=== PATIENT | male | born 1975 | race Caucasian/White ===

== ENCOUNTER 2021-11-11 07:39 | Emergency (ER) | payer BC, OTHER | END 2021-11-11 11:15 | disposition home or self-care (01) | LOC: ER1 07:39 → EDBD 07:39 → ER1 11:15 | DX: S22.41XA Multiple fractures of ribs, right side, initial encounter for closed fracture (principal); S82.145A Nondisplaced bicondylar fracture of left tibia, initial encounter for closed fracture; Z86.73 Personal history of transient ischemic attack (TIA), and cerebral infarction without residual deficits; I10 Essential (primary) hypertension; W01.0XXA Fall on same level from slipping, tripping and stumbling without subsequent striking against object, initial encounter | CPT/HCPCS: 71111; 73560; 73600; 90471; 99283 ==

== ENCOUNTER 2022-04-08 01:00 | Emergency (ER) | payer BC, OTHER ==
[2022-04-08 02:07] LABS: HEMOGLOBIN 14.8 gm/dl (14.0-17.5)
[2022-04-08 02:21] LABS: BUN/CREATININE RATIO 16 (0-10)
[2022-04-08] MEDS ORDERED: PHENERGAN25 MG/1 ML INJ (04:02)
== END 2022-04-08 10:14 | disposition home or self-care (01) ==
LOC: ER1 01:00
PROVIDERS: Family Medicine
DX: C71.9 Malignant neoplasm of brain, unspecified (principal); I69.354 Hemiplegia and hemiparesis following cerebral infarction affecting left non-dominant side
CPT/HCPCS: 70450; 80053; 81001; 83690; 85025; 96361; 96365; 96375; 99284; J2270; J2550

== ENCOUNTER 2022-04-24 10:40 | Emergency (ER) | payer BC, OTHER ==
[~2022-04-24 10:40] MED LIST: PHENERGAN25 MG/1 ML INJ
== END 2022-04-24 12:10 | disposition left against medical advice (07) ==
LOC: ER1 10:40
DX: R53.1 Weakness (principal); I10 Essential (primary) hypertension; Z86.73 Personal history of transient ischemic attack (TIA), and cerebral infarction without residual deficits; E11.9 Type 2 diabetes mellitus without complications
CPT/HCPCS: 70450; 93005; 99283